=== PATIENT | female | born 1970 | race Asian ===

== ENCOUNTER 2017-05-30 02:03 | Emergency (ER) | payer BC ==
[~2017-05-30] VITALS: Ht 147.3 cm; Wt 49.9 kg
--- NOTE | 2017-05-30 02:11 | NUR ---
Placed in room 08 . Placed on school bus monitor, blood pressure machine and pulse oximeter. To gown for exam. Side rails up. Report given to KATHRYN Madden.
[2017-05-30 02:12] VITALS: BP_SYST 132
--- NOTE | 2017-05-30 02:15 | NUR ---
Patient arrived to ED a/o x 4 with c/o N/V. Patient reports 3 vomiting episodes after taking claritin for seasonal allergies. Patient states she continues to feel nauses and feels as if the room is spinning. Patient denies syncope. Recieved kidney transplant in 2012. Patient looks pale. Denies ABD pain. at bedside. Will continue to monitor.
--- NOTE | 2017-05-30 02:25 | NUR ---
ED MD Sprague at bedside for medical evaluation.
[2017-05-30] MEDS ORDERED: NACL 0.9% 1,000 ML IV ONE (02:33)
--- NOTE | 2017-05-30 02:35 | NUR ---
22 gauge angiocath placed to right forearm. Use of asceptic technique. Opsite placed over site. Blood return noted. Blood for lab drawn from site. Flushed with 10 cc of normal saline. No evidence of infiltration noted. Patient tolerated well.
[2017-05-30] MEDS ORDERED: DIPHENHYDRAMINE INJ 50 MG/ML VIAL IVP ONE (02:45)
[2017-05-30] MEDS ORDERED: chlorproMAZINE HCL 50 MG/ 2 ML AMP IV ONE (02:45)
[2017-05-30 02:51] LABS: BASOPHILS % (AUTO) 0.3 % (0.0-2.0); EOSINOPHILS # (AUTO) 0.2 K/uL (0.0-0.4); EOSINOPHILS % (AUTO) 2.1 % (0.0-4.0); HEMATOCRIT 38.7 % (36-48); HEMOGLOBIN 12.9 g/dL (12.0-16.0); LYMPHOCYTES # (AUTO) 1.8 K/uL (1.0-5.5); MEAN CORPUSCULAR HEMOGLOBIN 30 pg (27-31); MEAN CORPUSCULAR HGB CONC 33 % (32-36); MEAN CORPUSCULAR VOLUME 91 fL (79.0-98.0); MONOCYTES # (AUTO) 0.8 K/uL (0.0-1.0); MONOCYTES % (AUTO) 10.1 % (1.7-9.3); NEUTROPHILS # (AUTO) 5.2 K/uL (1.8-7.7); NEUTROPHILS % (AUTO) 64.5 % (40.0-70.0); PLATELET COUNT (AUTO) 222 K/uL (130-430); RED BLOOD CELL COUNT(AUTO) 4.25 MIL/uL (4.2-6.2); RED CELL DISTRIBUTION WIDTH 13.3 % (9.0-15.0)
[2017-05-30 03:10] LABS: ALBUMIN 3.3 g/dL (3.4-4.8); CALCIUM 8.9 mg/dL (8.4-11.0); CREATININE 1.15 mg/dL (0.55-1.30); TOTAL BILIRUBIN 0.4 mg/dL (0.0-1.0)
--- NOTE | 2017-05-30 03:18 | NUR ---
Medicated per MD orders. IVF infusing with no s/s of infiltration at this time. Will continue to monitor.
[2017-05-30] MEDS ORDERED: POTASSIUM CHLORIDE 20 MEQ TAB.PRT.SR PO ONE (03:45)
[2017-05-30 03:47] LABS: BILIRUBIN,URINE NEGATIVE (NEGATIVE); BLOOD, URINE NEGATIVE (NEGATIVE); CLARITY/URINE SL HAZY (CLEAR); COLOR,URINE YELLOW (YELLOW); GLUCOSE,URINE TRACE (NEGATIVE); KETONES,URINE NEGATIVE (NEGATIVE); LEUKOCYTE ESTERASE ,URINE NEGATIVE (NEGATIVE); NITRITE, URINE NEGATIVE (NEGATIVE); PROTEIN URINE TRACE (NEGATIVE); UROBILINOGEN,URINE 0.2 (0.2-1.0)
[2017-05-30 03:57] LABS: BACTERIA,URINE RARE /HPF (None Seen); MUCUS,URINE 1+ /LPF (None Seen); RBC,URINE NONE SEEN /HPF (0-3); WBC,URINE 0-3 /HPF (0-3)
--- NOTE | 2017-05-30 04:23 | NUR ---
ER MD Neriek at bedside discussing test results and discharge.
[2017-05-30 04:49] VITALS: BP_SYST 124
--- NOTE | 2017-05-30 04:49 | NUR ---
Patient given written and verbal discharge instructions and verbalizes understanding. ER MD discussed with patient the results and treatment provided. Patient in stable condition. ID arm band removed. IV catheter removed intact and dressing applied, no active bleeding. Rx of antivert given. Patient educated on pain management and to follow up with PMD. Pain Scale 0/10. Opportunity for questions provided and answered.
== END 2017-05-30 04:49 | disposition home or self-care (01) ==
LOC: SED 02:03
DX: R42 Dizziness and giddiness (principal); R11.2 Nausea with vomiting, unspecified; Z94.0 Kidney transplant status
CPT/HCPCS: 36415; 80053; 81000; 85025; 96361; 96374; 96375; 99284; J1200; J3230; J7030

== ENCOUNTER 2018-02-23 01:21 | Emergency (ER) | payer BC ==
[~2018-02-23] VITALS: Ht 149.9 cm; Wt 47.2 kg
[2018-02-23 01:24] VITALS: BP_SYST 136
--- NOTE | 2018-02-23 01:29 | NUR ---
Patient to ER bed 08 to gown for evaluation. Side rails up. Report given to KATHRYN Eckert
--- NOTE | 2018-02-23 01:30 | NUR ---
Pt in bed 8 with c/o vomiting and abdominal pain.
--- NOTE | 2018-02-23 01:36 | NUR ---
ER at bedside examining patient.
[2018-02-23] MEDS ORDERED: NACL 0.9% 1,000 ML IV ONE (01:37)
[2018-02-23] MEDS ORDERED: ONDANSETRON HCL 4 MG/2 ML VIAL IVP ONE (01:45)
--- NOTE | 2018-02-23 01:57 | NUR ---
Patient transported to radiology via , accompanied by remanufacturing technician.
--- NOTE | 2018-02-23 02:11 | NUR ---
Returned from radiology, back to [facility].
[2018-02-23 02:18] LABS: BASOPHILS # (AUTO) 0.1 K/uL (0.0-0.2); BASOPHILS % (AUTO) 0.8 % (0.0-2.0); EOSINOPHILS # (AUTO) 0.1 K/uL (0.0-0.4); EOSINOPHILS % (AUTO) 0.8 % (0.0-4.0); HEMOGLOBIN 13.7 g/dL (12.0-16.0); LYMPHOCYTES # (AUTO) 0.4 K/uL (1.0-5.5); LYMPHOCYTES % (AUTO) 2.8 % (20.5-51.5); MEAN CORPUSCULAR HEMOGLOBIN 32 pg (27-31); MEAN CORPUSCULAR HGB CONC 34 % (32-36); MEAN CORPUSCULAR VOLUME 93 fL (79.0-98.0); MONOCYTES # (AUTO) 0.9 K/uL (0.0-1.0); MONOCYTES % (AUTO) 7.2 % (1.7-9.3); NEUTROPHILS # (AUTO) 11.1 K/uL (1.8-7.7); NEUTROPHILS % (AUTO) 88.4 % (40.0-70.0); PLATELET COUNT (AUTO) 245 K/uL (130-430); RED BLOOD CELL COUNT(AUTO) 4.32 MIL/uL (4.2-6.2); RED CELL DISTRIBUTION WIDTH 12.5 % (9.0-15.0); WHITE BLOOD COUNT (AUTO) 12.6 K/uL (4.8-10.8)
[2018-02-23 02:36] LABS: CALCIUM 7.8 mg/dL (8.4-11.0); CREATININE 1.02 mg/dL (0.55-1.30); POTASSIUM 3.6 mmol/L (3.5-5.1)
[2018-02-23 02:42] LABS: ALBUMIN 3.2 g/dL (3.4-4.8); TOTAL BILIRUBIN 0.1 mg/dL (0.0-1.0)
--- NOTE | 2018-02-23 03:26 | NUR ---
Patient resting quietly. No acute distress noted. Vital signs within normal range.
--- NOTE | 2018-02-23 03:51 | NUR ---
Patient given written and verbal discharge instructions and verbalizes understanding. ER MD discussed with patient the results and treatment provided. Patient in stable condition. ID arm band removed. IV catheter removed intact and dressing applied, no active bleeding. Rx of zofran given. Patient educated on pain management and to follow up with PMD. Pain Scale 0/10. Opportunity for questions provided and answered. Medication side effect fact sheet provided.
[2018-02-23 03:52] VITALS: BP_SYST 124
== END 2018-02-23 03:52 | disposition home or self-care (01) ==
LOC: SED 01:21
DX: T61.8X1A Toxic effect of other seafood, accidental (unintentional), initial encounter (principal); R11.2 Nausea with vomiting, unspecified; R03.0 Elevated blood-pressure reading, without diagnosis of hypertension; Z94.0 Kidney transplant status; Y92.89 Other specified places as the place of occurrence of the external cause
CPT/HCPCS: 36415; 74021; 80053; 81025; 83690; 85025; 96361; 96374; 99285; J2405; J7030

== ENCOUNTER 2020-10-04 11:54 | Emergency (ER) | payer BC, SELFPAY ==
[~2020-10-04] VITALS: Ht 149.9 cm; Wt 49.9 kg
[2020-10-04 12:03] VITALS: BP_SYST 158
[2020-10-04 19:29] VITALS: BP_SYST 149
== END 2020-10-04 15:55 | disposition home or self-care (01) ==
LOC: SED 11:54
DX: J18.9 Pneumonia, unspecified organism (principal); R09.02 Hypoxemia; Z20.822 Contact with and (suspected) exposure to COVID-19
CPT/HCPCS: 36415; 71045; 99284